=== PATIENT | male | born 1995 | race Two or more races ===

== ENCOUNTER 2020-02-14 08:28 | Emergency (ER) | payer BC ==
--- NOTE | 2020-02-14 10:42 | ER Document Report ---
HPI - HPI Time Seen by Provider: 02/14/20 10:22 Pain Level: 2 Context: Patient is a 25-year-old male who presents to the emergency department with a cat bite to his right second digit. On February 10, he attempted to try to capture a feral cat. States that he has been following this For the past month. Mother can verify this. Denies evidence of foaming at the mouth from the cat. He denies any fever, body aches, or chills. He noticed a white area to his finger, denies any drainage. States that he has been keeping a Band-Aid over the wound. - ROS Systems Reviewed and Negative: Yes All other systems reviewed and negative - CONSTITUTIONAL Constitutional: DENIES: Fever, Chills - MUSCULOSKELETAL Musculoskeletal: REPORTS: Extremity pain - DERM Skin Color: Normal Skin Problems: Open to Air - Finger avulsion Past Medical History - General Information source: Patient - Social History Smoking Status: Never Smoker Frequency of alcohol use: None Family History: Reviewed & Not Pertinent - Past Medical History Cardiac Medical History: Reports: Hx Hypertension Pulmonary Medical History: Reports: Hx Asthma, Hx Pneumonia Neurological Medical History: Denies: Hx Migraine Endocrine Medical History: Denies: Hx Diabetes Mellitus Type 1 GI Medical History: Denies: Hx Gastritis, Hx Gastroesophageal Reflux Disease Skin Medical History: Denies Hx Cellulitis, Denies Hx MRSA Psychiatric Medical History: Reports: Hx Attention Deficit Hyperactivity Disorder Infectious Medical History: Denies: Hx MRSA - Immunizations Immunizations up to date: Yes Hx Diphtheria, Pertussis, Tetanus Vaccination: Yes Vertical Provider Document - CONSTITUTIONAL Agree With Documented VS: Yes Exam Limitations: No Limitations General Appearance: No Apparent Distress - INFECTION CONTROL TRAVEL OUTSIDE OF THE [place] IN LAST 30 DAYS: No - HEENT HEENT: Atraumatic, Normocephalic, PERRLA - RESPIRATORY Respiratory: No Respiratory Distress - CARDIOVASCULAR Cardiovascular: Regular Rate, Regular Rhythm Pulses: Normal: Radial - MUSCULOSKELETAL/EXTREMETIES Musculoskeletal/Extremeties: FROM - NEURO Level of Consciousness: Awake, Alert, Appropriate - DERM Integumentary: Laceration - Finger avulsion to right distal second finger Course - Re-evaluation Re-evalutation: 02/14/20 10:47 The vaccination status of the dog is unknown although the patient notes that the cat did not demonstrate any signs of being rabid. A risks and benefits conversation regarding proceeding with a rabies immunoglobulin and rabies vaccination series was had with the patient. I informed the patient that the likelihood of transmission of rabies from a cat bite is very low but is not 0. I likewise informed the patient that if they were to develop rabies they would . The risks of proceeding with rabies vaccination and immunoglobulin therapy were also discussed. After this conversation, the patient elected to avoid proceeding with rabies immunoglobulin and rabies vaccination at this time. The patient has capacity. Animal control was also contacted for attemtps to quarantine the cat. It appeared that there may have been a paronychia at the area of the avulsion. I attempted to drain the area, but there was no drainable fluid. Will place patient on Augmentin. He was able to flex and extend his digit with no difficulty. He is in agreement with this plan. Follow-up precautions were given. Verbal discharge instructions were given to the patient. They verbalized understanding. They are stable for discharge. - Vital Signs Vital signs: Temp Pulse Resp BP Pulse Ox 98.2 F 94 18 148/91 H 98 02/14/20 08:35 02/14/20 08:35 02/14/20 08:35 02/14/20 08:35 02/14/20 08:35 - Laboratory Results Critical Laboratory Results Reviewed: No Critical Results - Radiology Results Critical Radiology Results Reviewed: No Critical Results Discharge - Discharge Clinical Impression: Cat bite Qualifiers: Encounter type: initial encounter Qualified Code(s): W55.01XA - Bitten by cat, initial encounter Condition: Stable Disposition: HOME, SELF-CARE Additional Instructions: You were seen today in the emergency department for a cat bite. Take the antibiotics as prescribed. Wash with the surgical scrub provided twice a day. Keep the area clean and dry. Keep away from stray cats. If you feel the infection is spreading after being on antibiotics for 3 days, return to the emergency department. Prescriptions: Amoxicillin/Potassium Clav [Augmentin 875-125 Tablet] 1 tab PO BID #14 tab Forms: Return to Work
[2020-02-14 10:53] VITALS: BP 141/84
== END 2020-02-14 10:50 | disposition home or self-care (01) ==
LOC: ER 08:28
DX: S61.250A Open bite of right index finger without damage to nail, initial encounter (principal); W55.01XA Bitten by cat, initial encounter; Y93.K9 Activity, other involving animal care; I10 Essential (primary) hypertension; J45.909 Unspecified asthma, uncomplicated
CPT/HCPCS: 99283